=== PATIENT | male | born 1945 | race Caucasian/White ===

== ENCOUNTER → 2017-02-15 | Outpatient (CLI) | payer MEDICARE ==
[~2017-02-15] MED LIST: ALBU90OI; ALLO100; Advair Hfa 230-12 GM; FURO40; GABA100; Humalog100 UNIT/1; INSULANPEN; Klor-Con 1010 MEQ; QUIN10; SIMV40; TAMS.4ER; TRAM50
[2017-02-15 13:54] LABS: Albumin/Globulin Ratio 0.8 (0.8-1.8); Bilirubin, Total 1.3 mg/dL (0.1-1.0); Bun/Creatinine Ratio 10.1 (12.0-20.0); Calcium, Blood 8.9 mg/dL (8.5-10.1); Creatinine, Blood 1.88 mg/dL (0.60-1.20); Globulin, Blood 3.6 g/dL (2.2-4.0); Potassium, Blood 3.9 mmol/L (3.5-5.5); Total Protein, Blood 6.6 g/dL (6.4-8.2)
[2017-02-16 17:51] LABS: Microalb/Creat Ratio UR, Rand Unable to Calculate mg/g (0.000-30.000); Microalbumin, Random Urine >6800.000 mg/L (0.000-20.000)
== END ==
LOC: LAB EV 19:00
PROVIDERS: Nurse Practitioner Family
DX: E11.65 Type 2 diabetes mellitus with hyperglycemia (principal)
CPT/HCPCS: 36415; 80053; 82043; 82570; 83036

== ENCOUNTER 2017-05-17 10:48 | Day surgery (SDC) | payer MEDICARE ==
[~2017-05-17] VITALS: Ht 172.7 cm; Wt 110.7 kg
== END 2017-05-17 12:58 | disposition home or self-care (01) ==
LOC: ORSCSDS 10:48
PROVIDERS: Internal Medicine Gastroenterology
PROC: 0D5F8ZZ Destruction of Right Large Intestine, Via Natural or Artificial Opening Endoscopic (ICD-10-PCS; principal; 2017-05-17 12:00)
PROC: 0DBN8ZX Excision of Sigmoid Colon, Via Natural or Artificial Opening Endoscopic, Diagnostic (ICD-10-PCS; principal; 2017-05-17 12:00)
PROC: 0DBH8ZX Excision of Cecum, Via Natural or Artificial Opening Endoscopic, Diagnostic (ICD-10-PCS; principal; 2017-05-17 12:00)
DX: R10.12 Left upper quadrant pain (principal); D12.0 Benign neoplasm of cecum; D12.5 Benign neoplasm of sigmoid colon; K55.20 Angiodysplasia of colon without hemorrhage; K64.1 Second degree hemorrhoids; K57.30 Diverticulosis of large intestine without perforation or abscess without bleeding; E11.22 Type 2 diabetes mellitus with diabetic chronic kidney disease; I12.9 Hypertensive chronic kidney disease with stage 1 through stage 4 chronic kidney disease, or unspecified chronic kidney disease; N18.9 Chronic kidney disease, unspecified; K70.30 Alcoholic cirrhosis of liver without ascites; J44.9 Chronic obstructive pulmonary disease, unspecified; G47.33 Obstructive sleep apnea (adult) (pediatric); E78.5 Hyperlipidemia, unspecified; Z87.891 Personal history of nicotine dependence; E66.01 Morbid (severe) obesity due to excess calories; Z68.41 Body mass index [BMI] 40.0-44.9, adult; Z79.4 Long term (current) use of insulin; Z79.899 Other long term (current) drug therapy
CPT/HCPCS: 82947; 88305; J7120

== ENCOUNTER → 2019-06-08 | Outpatient (CLI) | payer MEDICARE, OTHER ==
[2019-06-08 13:21] LABS: BASOPHILS ABSOLUTE AUTO 0.06 K/mm3 (0.00-0.23); BASOPHILS PERCENT AUTO 1 % (0-2); EOSINOPHILS ABSOLUTE AUTO 0.14 K/mm3 (0.00-0.68); EOSINOPHILS PERCENT AUTO 2 % (0-6); Hematocrit 37.9 % (37.0-53.0); Hemoglobin 12.3 g/dL (13.5-17.5); IMMATURE GRAN ABSOLUTE AUTO 0.11 K/mm3 (0.00-0.10); IMMATURE GRAN PERCENT AUTO 1 % (0-1); LYMPHOCYTES ABSOLUTE AUTO 0.36 K/mm3 (0.84-5.20); LYMPHOCYTES PERCENT AUTO 4 % (21-46); MONOCYTES ABSOLUTE AUTO 0.78 K/mm3 (0.16-1.47); MONOCYTES PERCENT AUTO 9 % (4-13); Mean Corpuscular HGB 30.6 pg (26.0-34.0); Mean Corpuscular HGB Conc 32.5 g/dL (31.5-36.5); Mean Corpuscular Volume 94 fL (80-100); NEUTROPHILS ABSOLUTE AUTO 7.52 K/mm3 (1.96-9.15); NEUTROPHILS PERCENT AUTO 84 % (41-73); RDW Standard Deviation 52.1 fL (35.1-46.3); Red Blood Cell Count 4.02 M/mm3 (4.30-5.90); White Blood Cell Count 8.97 K/mm3 (4.00-11.30)
[2019-06-08 13:33] LABS: Mean Platelet Volume 11.3 fL (9.1-12.4); Platelet Count 114 K/mm3 (150-400)
[2019-06-08 13:35] LABS: Albumin, Blood 2.2 g/dL (3.4-5.0); Albumin/Globulin Ratio 0.6 (0.8-1.8); Bilirubin, Total 1.1 mg/dL (0.1-1.0); Bun/Creatinine Ratio 16.2 (12.0-20.0); Calcium, Blood 8.3 mg/dL (8.5-10.1); Creatinine, Blood 2.28 mg/dL (0.60-1.20); Globulin, Blood 3.4 g/dL (2.2-4.0); Potassium, Blood 4.5 mmol/L (3.5-5.5); Total Protein, Blood 5.6 g/dL (6.4-8.2)
[2019-06-08 14:23] LABS: International Normalized Ratio 1.11; Prothrombin Time Results 11.8 Sec (9.7-11.5)
== END | disposition home or self-care (01) ==
LOC: LAB SHORT 12:18 → LAB EV 12:18
PROVIDERS: General Practice
DX: T14.8XXA Other injury of unspecified body region, initial encounter (principal); R16.0 Hepatomegaly, not elsewhere classified; K74.60 Unspecified cirrhosis of liver
CPT/HCPCS: 80053; 83690; 85025; 85610; 85730; 87070; 87075; 87205

== ENCOUNTER 2019-07-13 14:18 | Emergency (ER) | payer MEDICARE, OTHER ==
[~2019-07-13] VITALS: Ht 172.7 cm; Wt 113.4 kg
[~2019-07-13 14:18] MED LIST changes: -ALLO100; +ALLO100 PO; +BASAGLAR K100 UNIT/1 SC; +CARV25; -FURO40; +FURO40 PO; -GABA100; +GABA100 PO; +HUMALOG100 UNIT/1 SC; -Humalog100 UNIT/1; -INSULANPEN; -Klor-Con 1010 MEQ; +Klor-Con 1010 MEQ PO; +OSTERA TABLET1 EACH; -SIMV40; -TAMS.4ER; +TAMS.4ER PO; +ZOCOR20 MG PO
[2019-07-13 14:44] LABS: BASOPHILS ABSOLUTE AUTO 0.07 K/mm3 (0.00-0.23); BASOPHILS PERCENT AUTO 1 % (0-2); EOSINOPHILS ABSOLUTE AUTO 0.18 K/mm3 (0.00-0.68); EOSINOPHILS PERCENT AUTO 1 % (0-6); Hematocrit 39.4 % (37.0-53.0); Hemoglobin 12.7 g/dL (13.5-17.5); IMMATURE GRAN ABSOLUTE AUTO 0.09 K/mm3 (0.00-0.10); IMMATURE GRAN PERCENT AUTO 1 % (0-1); LYMPHOCYTES ABSOLUTE AUTO 0.36 K/mm3 (0.84-5.20); LYMPHOCYTES PERCENT AUTO 3 % (21-46); MONOCYTES ABSOLUTE AUTO 1.14 K/mm3 (0.16-1.47); MONOCYTES PERCENT AUTO 9 % (4-13); Mean Corpuscular HGB Conc 32.2 g/dL (31.5-36.5); Mean Corpuscular Volume 96 fL (80-100); NEUTROPHILS ABSOLUTE AUTO 11.44 K/mm3 (1.96-9.15); NEUTROPHILS PERCENT AUTO 86 % (41-73); Platelet Count 167 K/mm3 (150-400); RDW Coefficient Variation 14.6 % (11.7-14.2); RDW Standard Deviation 51.2 fL (35.1-46.3); White Blood Cell Count 13.28 K/mm3 (4.00-11.30)
[2019-07-13 15:04] LABS: Alanine Aminotransfer (ALT/SGP 20 U/L (12-78); Albumin/Globulin Ratio 0.5 (0.8-1.8); Alk Phos 235 U/L (50-136); Anion Gap 6 mmol/L (6-16); Aspartate Aminotrans (AST/SGOT 33 U/L (12-37); Bilirubin, Total 1.4 mg/dL (0.1-1.0); Blood Urea Nitrogen 39 mg/dL (8-24); Bun/Creatinine Ratio 16.8 (12.0-20.0); CO2, Blood 25 mmol/L (21-32); Calcium, Blood 8.2 mg/dL (8.5-10.1); Chloride, Blood 109 mmol/L (98-108); Creatinine, Blood 2.32 mg/dL (0.60-1.20); Globulin, Blood 3.7 g/dL (2.2-4.0); Glomerular Filtration Rate 29 (60-); Glucose, Blood 144 mg/dL (70-99); Sodium, Blood 140 mmol/L (136-145); Total Protein, Blood 5.7 g/dL (6.4-8.2); Troponin I <0.015 ng/mL (0.000-0.040)
[2019-07-13] MEDS ORDERED: AZIT500 PO (17:26)
[2019-07-13] MEDS ORDERED: ONDA4ODT SL (17:34)
== END 2019-07-13 17:56 | disposition home or self-care (01) ==
LOC: ER 14:18
PROVIDERS: Emergency Medicine
DX: R53.1 Weakness (principal); R60.1 Generalized edema; C22.8 Malignant neoplasm of liver, primary, unspecified as to type; Z88.0 Allergy status to penicillin; Z88.8 Allergy status to other drugs, medicaments and biological substances; Z87.891 Personal history of nicotine dependence
CPT/HCPCS: 36415; 71045; 74176; 80053; 83690; 83880; 84443; 84484; 85025; 93005; 93010; 96374; 99285-25; J2405; J7030

== ENCOUNTER 2019-07-13 22:58 | Inpatient (IN) | payer MEDICARE, OTHER ==
[~2019-07-13] VITALS: Ht 172.7 cm; Wt 128.1 kg
[~2019-07-13 22:58] MED LIST changes: +AZIT500 PO; +ONDA4ODT SL
[2019-07-13 23:48] LABS: BASOPHILS ABSOLUTE AUTO 0.05 K/mm3 (0.00-0.23); BASOPHILS PERCENT AUTO 1 % (0-2); EOSINOPHILS ABSOLUTE AUTO 0.09 K/mm3 (0.00-0.68); EOSINOPHILS PERCENT AUTO 1 % (0-6); Hematocrit 42.7 % (37.0-53.0); Hemoglobin 13.6 g/dL (13.5-17.5); IMMATURE GRAN ABSOLUTE AUTO 0.06 K/mm3 (0.00-0.10); IMMATURE GRAN PERCENT AUTO 1 % (0-1); LYMPHOCYTES ABSOLUTE AUTO 0.34 K/mm3 (0.84-5.20); LYMPHOCYTES PERCENT AUTO 4 % (21-46); MONOCYTES ABSOLUTE AUTO 0.56 K/mm3 (0.16-1.47); MONOCYTES PERCENT AUTO 6 % (4-13); Mean Corpuscular HGB 30.8 pg (26.0-34.0); Mean Corpuscular HGB Conc 31.9 g/dL (31.5-36.5); Mean Corpuscular Volume 97 fL (80-100); Mean Platelet Volume 10.1 fL (9.1-12.4); NEUTROPHILS ABSOLUTE AUTO 8.54 K/mm3 (1.96-9.15); NEUTROPHILS PERCENT AUTO 89 % (41-73); Platelet Count 214 K/mm3 (150-400); RDW Coefficient Variation 14.7 % (11.7-14.2); Red Blood Cell Count 4.42 M/mm3 (4.30-5.90); White Blood Cell Count 9.64 K/mm3 (4.00-11.30)
[2019-07-14 00:08] LABS: Alanine Aminotransfer (ALT/SGP 19 U/L (12-78); Albumin, Blood 1.9 g/dL (3.4-5.0); Albumin/Globulin Ratio 0.5 (0.8-1.8); Alk Phos 223 U/L (50-136); Anion Gap 6 mmol/L (6-16); Aspartate Aminotrans (AST/SGOT 32 U/L (12-37); Bilirubin, Total 1.8 mg/dL (0.1-1.0); Blood Urea Nitrogen 41 mg/dL (8-24); Bun/Creatinine Ratio 18.1 (12.0-20.0); CO2, Blood 24 mmol/L (21-32); Calcium, Blood 8.1 mg/dL (8.5-10.1); Chloride, Blood 110 mmol/L (98-108); Creatinine, Blood 2.26 mg/dL (0.60-1.20); Globulin, Blood 3.5 g/dL (2.2-4.0); Glomerular Filtration Rate 30 (60-); Glucose, Blood 165 mg/dL (70-99); Potassium, Blood 4.2 mmol/L (3.5-5.5); Sodium, Blood 140 mmol/L (136-145); Total Protein, Blood 5.4 g/dL (6.4-8.2); Troponin I <0.015 ng/mL (0.000-0.040)
[2019-07-14 03:55] LABS: PCO2 Arterial 33.1 mmHg (35-45); PO2 Arterial 68.6 mmHg (80-100); pH Blood Arterial 7.36 (7.35-7.45)
[2019-07-14 04:47] LABS: Source, Urine Clean Catch
[2019-07-14 04:50] LABS: Appearance, Urine Hazy (Clear); Bilirubin, Urine Neg (Neg); Blood, Urine 4+ (Neg); Color, Urine Amber (P-Yellow); Glucose Qualitative, Urine 1+ (Neg); Ketones, Urine Neg (Neg); Leukocyte Esterase, Urine Neg (Neg); Nitrite, Urine Neg (Neg); Protein, Urine 4+ (Neg); Specific Gravity, Urine 1.015 (1.003-1.022); Urobilinogen, Urine 2+ (Normal)
[2019-07-14 04:55] LABS: White Blood Cells, Urine 0-2 /hpf (0-5)
[2019-07-14 04:56] LABS: Amorphous Mod (0-Heavy); Bacteria Few /hpf; Mucus Light (0-Heavy); Squamous Epithelial Cells Not Seen /hpf (Few)
[2019-07-14 06:20] LABS: Adenovirus Not Detected (NOT DETECT); Bordetella pertussis Not Detected (NOT DETECT); Chlamydophila pneumoniae Not Detected (NOT DETECT); Coronavirus 229E Not Detected (NOT DETECT); Coronavirus HKU1 Not Detected (NOT DETECT); Coronavirus NL63 Not Detected (NOT DETECT); Coronavirus OC43 Not Detected (NOT DETECT); Human Metapneumovirus Not Detected (NOT DETECT); Human Rhinovirus/Enterovirus Not Detected (NOT DETECT); Influenza A/2009-H1 Not Detected (NOT DETECT); Influenza A/H1 Not Detected (NOT DETECT); Influenza A/H3 Not Detected (NOT DETECT); Influenza B Not Detected (NOT DETECT); Mycoplasma pneumoniae Not Detected (NOT DETECT); Parainfluenza Virus 1 Not Detected (NOT DETECT); Parainfluenza Virus 2 Not Detected (NOT DETECT); Parainfluenza Virus 3 Not Detected (NOT DETECT); Parainfluenza Virus 4 Not Detected (NOT DETECT); Respiratory Syncytial Virus Not Detected (NOT DETECT)
[2019-07-14 06:25] LABS: International Normalized Ratio 1.49; Prothrombin Time Results 15.6 Sec (9.7-11.5)
--- NOTE | 2019-07-14 06:28 | NUR ---
PT TO ICU 8 @ 0550 WITH ED RN AND TECH, PT INTUBATED, NOT ON SEDATION PT HAD BEEN UNRESPONSIVE IN ED. VENT SET TO AC 14/500/5/30%. LS COARSE. ETT 8.0 AND 24CM AT THE TEETH. LEVO INF @11, PROPOFOL ON SB. AFTER TRANSFER FROM ED [facility], PT BEGAN MOVING ALL EXTREMETIES, MINIMALLY AROUSABLE. PT BECAME MORE ALERT, REPORTS PAIN TO NECK, FOLLOWING COMMANDS, VERY WEAK. PILLOWS PROVIDED FOR COMFORT. MONITOR SHOWS SINUS RHYTHM, HR 70'S, LEVO GTT INF TO MAINTAIN MAPS>65. DRESSING TO CL RIJ NOT SECURE, REPLACED UPON ARRIVAL. OG IN PLACE, CLAMPED, CURRIE IN PLACE, DARK YELLOW URINE, MINIMAL OUTPUT. LEELA FREESTYLE GLUCOMETER NOTED TO R UPPER ARM. SIGNIFICANT ABD DISTENTION, FIRMNESS TO RUQ, DEPENDENT EDEMA PRIMARILY TO BILAT FLANKS. 1-2+ EDEMA TO BLE, SCATTERED ABRASIONS AND BRUISING TO LEGS, EXTREMETIES COOL TO THE TOUCH. SEE FLOWSHEET FOR TITRATIONS.
[2019-07-14 07:52] LABS: BASOPHILS ABSOLUTE AUTO 0.04 K/mm3 (0.00-0.23); BASOPHILS PERCENT AUTO 0 % (0-2); EOSINOPHILS ABSOLUTE AUTO 0.01 K/mm3 (0.00-0.68); EOSINOPHILS PERCENT AUTO 0 % (0-6); Hematocrit 38.9 % (37.0-53.0); Hemoglobin 12.5 g/dL (13.5-17.5); IMMATURE GRAN ABSOLUTE AUTO 0.12 K/mm3 (0.00-0.10); IMMATURE GRAN PERCENT AUTO 1 % (0-1); LYMPHOCYTES ABSOLUTE AUTO 0.38 K/mm3 (0.84-5.20); LYMPHOCYTES PERCENT AUTO 2 % (21-46); MONOCYTES ABSOLUTE AUTO 1.33 K/mm3 (0.16-1.47); MONOCYTES PERCENT AUTO 7 % (4-13); Mean Corpuscular HGB 30.6 pg (26.0-34.0); Mean Corpuscular HGB Conc 32.1 g/dL (31.5-36.5); Mean Corpuscular Volume 95 fL (80-100); NEUTROPHILS ABSOLUTE AUTO 17.69 K/mm3 (1.96-9.15); NEUTROPHILS PERCENT AUTO 90 % (41-73); Platelet Count 287 K/mm3 (150-400); RDW Coefficient Variation 14.9 % (11.7-14.2); RDW Standard Deviation 52.5 fL (35.1-46.3); Red Blood Cell Count 4.08 M/mm3 (4.30-5.90); White Blood Cell Count 19.57 K/mm3 (4.00-11.30)
[2019-07-14 08:08] LABS: Albumin, Blood 1.6 g/dL (3.4-5.0); Albumin/Globulin Ratio 0.6 (0.8-1.8); Bilirubin, Total 2.2 mg/dL (0.1-1.0); Bun/Creatinine Ratio 18.1 (12.0-20.0); Calcium, Blood 7.5 mg/dL (8.5-10.1); Creatinine, Blood 2.27 mg/dL (0.60-1.20); Globulin, Blood 2.8 g/dL (2.2-4.0); Potassium, Blood 4.1 mmol/L (3.5-5.5); Total Protein, Blood 4.4 g/dL (6.4-8.2)
--- NOTE | 2019-07-14 09:07 | NUR ---
PT ASSESSED THIS AM AT 0715. PT ON PROPOFOL 30MCG FOR MECH VENT, LEVOPHED AT 20MCG. PUPILS PINPOINT 1/1, BUT STRONGLY GRIMACES WITH ANY PALPATION OF ABD, ESPECIALLY OVER RUQ. ABD DISTENDED. PT PALE/DUSKY/COOL/DIAPHORETIC, POOR PERIPHERAL PERFUSION T/O. VASOPRESSIN STARTED, LEVOPHED DECREASED TO 8MCG, PROPOFOL DECREASED TO 20MCG. DR TREVINO IN TO SEE PT, U/S OF MESINTARIC ART ORDERED. DR PRABHAKAR CALLED AND GIVEN UPDATE; IS IN UNIT NOW.
--- NOTE | 2019-07-14 09:49 | NUR ---
US COMPLETE. LEVOPHED DECREASED TO 6MCG, DR PRABHAKAR IN TO SEE PT. DR GILES AND DR GARCIA CONSULTED AND WILL BE IN TODAY TO SEE PT. PT'S DAUGHTER LIZETTE CALLED AND NOTIFIED.
--- NOTE | 2019-07-14 10:46 | NUR ---
DR PRABHAKAR UPDATED PT'S DAUGHTER. PT SCHEDULED FOR PARACENTESIS AT 1200 W RADIOLOGY. LEVOPHED DECREASED TO 5MCG. PROPOFOL REMAINS AT 20MCG, PT APPEARS COMFORTABLE AT REST, GRIMACES WITH TURN.
--- NOTE | 2019-07-14 13:03 | NUR ---
PARACENTESIS COMPLETE, 5.5 LITERS REMOVED, PHARMACY NOTIFIED. PT TO RECEIVE ALBUMIN. BANDAID TO Q.
[2019-07-14 13:32] LABS: Automated BF RBC Count 0.002 M/mm3 (0-0); Automated BF WBC Count 7.355 K/mm3 (0-999); Body Fluid WBC Count 7355 /mm3 (0-999)
[2019-07-14 13:41] LABS: Albumin, Body Fluid 0.6 g/dL; Glucose, Body Fluid 135 mg/dL; Lactate Dehydrogenase, Body Fl 101 U/L; Protein, Body Fluid 1.5 g/dL
[2019-07-14 13:42] LABS: Appearance, Body Fluid Cloudy (Clear); Color, Body Fluid L Yellow (None-Yellow)
[2019-07-14 13:52] LABS: Total Cell Count, Body Fluid 100
--- NOTE | 2019-07-14 18:49 | NUR ---
PT AWAKENS WITH TURNS TOWARDS LATER PART OF SHIFT. PT ABLE TO NOD HEAD APPROPRIATELY TO QUESTIONS. PT GRIMACES W ANY MOVEMENT OF ABD. PROPOFOL TITRATED UP TO 30MCG. VASOPRESSIN TURNED OFF WHEN LEVOPHED AT 5MCG, BUT SINCE THEN LEVOPHED HAS NEEDED TO BE TITRATED BACK UP TO 10MCG. PT MAY NEED VASOPRESSIN RESTARTED. OTHER VITALS REMAIN STABLE. PICTURES TAKEN OF SCABS/SORES ON LEGS. MINIMAL U/O FOR SHIFT; 200CC. DR GARCIA IN TODAY TO SEE PT; NO NEW ORDERS, PT IS NOT A SURGICAL CANDIDATE FOR ANY INTERVENTIONS AT THIS TIME. DR HERNANDEZ ALSO IN, WILL SEE PT LATER TODAY
--- NOTE | 2019-07-14 23:13 | NUR ---
ASSUMPTION OF CARE ASSUMED CARE OF PT @ 1900, PT INTUBATED AND SEDATED WITH PROPOFOL, VENT SET TO AC 14/450/5/30%, PT AROUSES TO VERBAL STIMULI, ANSWERS SOME YES/NO QUESTIONS, GRIMACES WITH TURNS. MONITOR SHOWS SINUS RHYTHM, HR 70'S, LEVO AND VASOPRESSIN INF TO MAINTAIN MAPS>65. SKIN IS PALE AND COOL, VERY FRAGILE. OG IN PLACE TO LIS, BROWN/GREEN OUTPUT. ABD MODERATELY DISTENDED, BUT IMPROVED FROM ADMISSION, VERY TENDER WITH PALPATION. CURRIE IN PLACE DRAINING DARK YELLOW/ELLA URINE, WITH LARGE AMOUNT OF SEDIMENT. SEE FLOWSHEET FOR TITRATIONS. DR HERNANDEZ IN TO SEE PT @ 1999, NEW ORDERS FOR ADDITIONAL ALBUMIN.
--- NOTE | 2019-07-15 01:13 | NUR ---
PT REMAINS INTUBATED AND SEDATED, VASOPRESSIN ON SB, PROPOFOL INCREASED FOR COMFORT. PT CONTINUES TO GRIMACE WITH NURSING CARE, RELAXES WITH REST.
[2019-07-15 04:06] LABS: BASOPHILS ABSOLUTE AUTO 0.01 K/mm3 (0.00-0.23); BASOPHILS PERCENT AUTO 0 % (0-2); EOSINOPHILS ABSOLUTE AUTO 0.03 K/mm3 (0.00-0.68); EOSINOPHILS PERCENT AUTO 0 % (0-6); Hematocrit 26.4 % (37.0-53.0); Hemoglobin 8.5 g/dL (13.5-17.5); IMMATURE GRAN ABSOLUTE AUTO 0.03 K/mm3 (0.00-0.10); IMMATURE GRAN PERCENT AUTO 0 % (0-1); LYMPHOCYTES PERCENT AUTO 5 % (21-46); MONOCYTES ABSOLUTE AUTO 0.61 K/mm3 (0.16-1.47); MONOCYTES PERCENT AUTO 8 % (4-13); Mean Corpuscular HGB Conc 32.2 g/dL (31.5-36.5); Mean Corpuscular Volume 96 fL (80-100); Mean Platelet Volume 10.7 fL (9.1-12.4); NEUTROPHILS ABSOLUTE AUTO 6.28 K/mm3 (1.96-9.15); NEUTROPHILS PERCENT AUTO 85 % (41-73); Platelet Count 94 K/mm3 (150-400); RDW Coefficient Variation 15.2 % (11.7-14.2); RDW Standard Deviation 52.8 fL (35.1-46.3); Red Blood Cell Count 2.74 M/mm3 (4.30-5.90); White Blood Cell Count 7.36 K/mm3 (4.00-11.30)
[2019-07-15 04:22] LABS: Albumin, Blood 3.2 g/dL (3.4-5.0); Albumin/Globulin Ratio 1.8 (0.8-1.8); Bilirubin, Total 1.9 mg/dL (0.1-1.0); Bun/Creatinine Ratio 18.4 (12.0-20.0); Calcium, Blood 7.8 mg/dL (8.5-10.1); Creatinine, Blood 2.45 mg/dL (0.60-1.20); Globulin, Blood 1.8 g/dL (2.2-4.0); Potassium, Blood 3.8 mmol/L (3.5-5.5)
[2019-07-15 05:30] LABS: PCO2 Arterial 31.7 mmHg (35-45); PO2 Arterial 90.8 mmHg (80-100)
--- NOTE | 2019-07-15 07:33 | NUR ---
SHIFT SUMMARY PT REMAINS INTUBATED WITH MILD SEDATION, PRESSORS DECREASED THIS SHIFT, LEVO INFUSING @ 4 TO MAINTAIN MAPS>65. SEDATION VACATION THIS SHIFT WITH SBT, PT AWAKE WITH PROPOFOL @ 10, TOLERATING VENT ON PS. PT REPORTS PAIN TO ABD, ESPECIALLY WITH MOVEMENT/REPOSITIONING, ASKED PT IF HE WOULD LIKE SEDATION INCREASED UNTIL PROVIDER VISIT TODAY, PT DECLINES INCREASING SEDATION. OG REMAINS IN PLACE TO LIS, CURRIE IN PLACE WITH DARK YELLOW OUTPUT WITH SEDIMENT. REPORT GIVEN TO ABDIRIZAK BARRAGAN.
--- NOTE | 2019-07-15 08:44 | NUR ---
ASSUMED CARE OF PT AT 0700. REPORT FROM CATA BARRAGAN. PT INTUBATED, VENT SETTINGS SPONT PS 7/PEEP 5/30%. LUNGS COARSE AND DIMINISHED IN BASES. COUGH AND GAG REFLEX PRESENT. PROPOFOL INFUSING AT 10 MCG/KG/MIN. PT FOLLOWING COMMANDS. ATTEMPTING TO COMMUNICATE BY MOUTHING WORDS AND DRAWING IN AIR, OFFERED PEN AND PAPER, PT REFUSED, PROVIDED COMMUNICATION BOARD. PT REFUSING ADDITIONAL SEDATION. NODS WHEN ASKED ABOUT PAIN. ABD DISTENDED, FIRM, TYPMANIC. TENDER c PALPATION. OGT TO LIS. CLEAR/BROWN EMESIS IN TUBE. WEAK IN ALL EXTREMITIES. SCATTERED BRUISING AND SORES ON LEGS BILATERALLY. TEMP PROBE CURRIE PATENT AND DRAINING YELLOW URINE c SEDIMENT TO GRAVITY. LEVOPHED INFUSING AT 4 MCG/MIN. WILL TITRATE FOR MAP >65. WILL CONTINUE TO MONITOR.
--- NOTE | 2019-07-15 11:47 | NUR ---
DR PRABHAKAR TO ROOM TO ASSESS PT. PROPOFOL PLACED ON STANDBY. PT FOLLOWING COMMANDS. STRONG COUGH. MODERATE, RED STREAKED SPUTUM THROUGH ETT. PLAN FOR EXTUBATION. RT NOTIFIED. EXTUBATED AT 1106. PLACED ON 2L O2 VIA NC. PT ABLE TO COUGH AND CLEAR SECRETIONS. PT VERY VOCAL, ENCOURAGED PT TO REST VOICE. RESTRAINTS REMOVED.
[2019-07-15] MEDS ORDERED: INCRUSE ELLI62.5 MC1 INH (14:54)
[2019-07-15] MEDS ORDERED: CARVEDILOL6.25 MG PO (14:55)
[2019-07-15] MEDS ORDERED: Calcitriol0.25 MCG PO (14:56)
--- NOTE | 2019-07-15 17:47 | NUR ---
SHIFT SUMMARY PT EXTUBATED THIS SHIFT. ON 2L O2 VIA NC. LUNGS DIMINISHED IN BASES. PT c THICK WHITE SECRETIONS, ABLE TO MANAGE c ORAL SUCTIONING. VOICE HOARSE. SPEAKING IN FULL SENTANCES. STATES HE FEELS SOB. NO DISTRESS NOTED AT THIS TIME. O2 SATS >95%. PT REFUSING SWALLOW EVAL AT THIS TIME. ABD FIRM, DISTENDED, TENDER c PALPATION. LEVOPHED CONTINUES AT 4 MCG/MIN, ATTEMPTED TO DECREASE THIS SHIFT, MAPS WERE LESS THAN 65. HR 90-100'S. PT PAINFUL c TURNS, ENCOURAGED, REFUSED BED BATH. CURRIE PATENT AND DRAINING TO GRAVITY. WILL CONTINUE TO MONITOR UNTIL REPORT TO ONCOMING NURSE.
--- NOTE | 2019-07-15 19:20 | NUR ---
ASSESSMENT/ASSUMED CARE PT SITTING UP IN BED AWAKE AND ALERT. DOING SELF SUCTIONING OF MOUTH. C/O PAIN TO RIGHT UPPER QUAD ABD, WILL CALL MD. LUNGS COARSE AND DECREASED IN THE BASES ON 3 LITERS O2 VIA NC. PRODUCTIVE COUGH WITH THICK WHITE SPUTUM. PT DOING SELF SUCTIONING. HEART RATE REGULAR, BP STABLE ON 3 MCQ/MIN LEVOPHED. TITRATING TO KEEP SBP ABOVE 90. EDEMA NOTED TO BILAT LOWER EXT AND GENERAL. PT REPOSITIONED TO RIGHT WITH HOB UP 30. BT+ TYMPANIC. PT NPO. CENTRAL LINE TO RIGHT IJ, DRSG CHANGED AND CATH STABILIZATION DEVICE APPLIED. SITE CLEAR. LEVOPHED AT 3 MCQ/MIN, LR AT 50 ML/HR AND NS AT 10 ML/HR. CURRIE CATH PATENT DRAINING CLEAR YELLOW URINE. PT WITH GENERAL WEAKNESS. ORAL CARE DONE.
--- NOTE | 2019-07-15 20:05 | NUR ---
PAIN CALL TO DR PRABHAKAR REGARDING PAIN TO RIGHT UPPER QUAD, RECEIVED ORDER FOR FENTANYL
--- NOTE | 2019-07-16 02:14 | NUR ---
PAIN PT SLEEPING, AWAKENS EASILY. REPOSITIONED TO RIGHT WITH HOB UP. PT STARTED YELLING,"IT HURTS". TRIED TO REPOSITION PT AGAIN. PT STATES,"NO DON'T MOVE ME. I NEED PAIN MEDS". PT MED WITH FENTANYL 25 MCQ. PT CONT TO MOAN. PT STATES,"MY BREATHING" ENCOURAGED PT TO TRY AND RELAX. SPO2 97% ON 3 LITERS. RESP EVEN AND NONLABORED
[2019-07-16 04:02] LABS: BASOPHILS ABSOLUTE AUTO 0.03 K/mm3 (0.00-0.23); BASOPHILS PERCENT AUTO 0 % (0-2); EOSINOPHILS ABSOLUTE AUTO 0.12 K/mm3 (0.00-0.68); EOSINOPHILS PERCENT AUTO 1 % (0-6); Hematocrit 33.4 % (37.0-53.0); Hemoglobin 10.4 g/dL (13.5-17.5); IMMATURE GRAN ABSOLUTE AUTO 0.14 K/mm3 (0.00-0.10); IMMATURE GRAN PERCENT AUTO 1 % (0-1); LYMPHOCYTES ABSOLUTE AUTO 0.27 K/mm3 (0.84-5.20); LYMPHOCYTES PERCENT AUTO 2 % (21-46); MONOCYTES PERCENT AUTO 9 % (4-13); Mean Corpuscular HGB Conc 31.1 g/dL (31.5-36.5); Mean Corpuscular Volume 96 fL (80-100); Mean Platelet Volume 10.4 fL (9.1-12.4); NEUTROPHILS ABSOLUTE AUTO 10.14 K/mm3 (1.96-9.15); NEUTROPHILS PERCENT AUTO 86 % (41-73); Platelet Count 129 K/mm3 (150-400); RDW Coefficient Variation 15.2 % (11.7-14.2); RDW Standard Deviation 53.7 fL (35.1-46.3); Red Blood Cell Count 3.47 M/mm3 (4.30-5.90)
[2019-07-16 04:16] LABS: International Normalized Ratio 1.6; Prothrombin Time Results 16.7 Sec (9.7-11.5)
[2019-07-16 04:22] LABS: Albumin, Blood 2.3 g/dL (3.4-5.0); Albumin/Globulin Ratio 1.1 (0.8-1.8); Bilirubin, Total 1.9 mg/dL (0.1-1.0); Bun/Creatinine Ratio 17.4 (12.0-20.0); Calcium, Blood 7.7 mg/dL (8.5-10.1); Creatinine, Blood 2.82 mg/dL (0.60-1.20); Globulin, Blood 2.1 g/dL (2.2-4.0); Total Protein, Blood 4.4 g/dL (6.4-8.2)
--- NOTE | 2019-07-16 06:01 | NUR ---
SHIFT SUMMARY PT RESTING QUIETLY. MED WITH FENTANYL 25 MCQ ONCE DURING THE NIGHT FOR C/O RIGHT UPPER QUAD ABD PAIN. TURN Q2HR. LEVOPHED INCREASED FROM 3 MCQ/MIN TO 10 MCQ/MIN TO KEEP SBP >90. CENTRAL LINE DRSG CHANGED. POOR URINE OUTPUT-290ML DARK YELLOW URINE WITH SEDIMENT. PT CONT NPO. PRODUCTIVE COUGH AND DOING SELF SUCTIONING. O2 AT 3 LITERS VIA NC. REPORT TO ON COMING NURSE
--- NOTE | 2019-07-16 07:28 | NUR ---
CARE ASSUMED CARE AND REPORT ASSUMED FROM NICCI BARRAGAN. PT SLEEPING BUT EASILY AROUSABLE. C/O PAIN TO ABDOMEN. ENCOURAGED PT TO ADJUST HIMSELF TO GAIN STRENGTH AND DISCUSSED THE IMPORTANCE OF TURNING; PT REFUSED TO TURN AT THIS TIME. AFEBRILE. NSR, HR 80S. LEVOPHED GTT INFUSING AT 9 MCG. LR INFUSING AT 50 ML/HR PER ORDER. LUNG SOUNDS CLEAR, TOLERATING 3L NC. CURRIE CATH SECURED AND PATENT. PT NPO CURRENTLY; WILL INQUIRE FOR SPEECH EVAL. CENTRAL LINE SECURED. WILL CONTINUE TO MONITOR.
--- NOTE | 2019-07-16 11:23 | NUR ---
REASSESSMENT PT CONTINUES TO SLEEP OFF/ON AND IS RESISTANT TO MOVING. CONTINUES TO COMPLAIN OF ABDOMINAL PAIN. TYLENOL SUPPOSITORY GIVEN FOR PAIN; WILL MONITOR. ABDOMEN LARGELY SWOLLEN; MD AWARE. DARELL CONSULTED THIS AM; AWAITING EVALUATION. LR MIV DISCONTINUED PER MD. LEVO INFUSING AT 9 MCG; ATTEMPTING TO TITRATE DOWN. ALBUMIN INFUSING PER ORDER. AWAITING SPEECH EVAL, OT AND PT. LUNG SOUNDS CLEAR AND TOLERATING 2L NC. HR AND RHYTHM VARIES FROM NSR, HR 80S TO [place], HR 110-120. PT TURNED Q2H. WILL CONTINUE TO MONITOR.
--- NOTE | 2019-07-16 15:42 | NUR ---
Pt resting in bed upon arrival. Pt is A&O and denies pain at this time. Pt appears dyspneic as evidenced by work of breathing, respiratory rate of 24, and ability to only speak 1 word sentences. Received verbal permission from Pt to contact daughter Shabnam to provide update and plan of care. This RN ended visit to allow Pt to rest. Spoke with Bedside RN Jonna and discussed case. Called and spoke Pt's daughter Shabnam. Updated Haque of Pt's condition and plan of care. Engaged in therapeutic conversation regarding advanced care planning. Educated on the importance of planning for Pt's future as his cirrhosis and liver cancer take its coarse. Discussed the probability of Pt needing assistance with his ADLs. Discussed the possibility of needing to consider hospice in the future. Offered therapeutic listening and answered questions. Haque is inquiring about short term and penitentiary prognosis. This RN deferred questions to hospitalist. Haque reports Pt's brother has offered Pt to move in with him in [facility]. Brother has an extra room and would not charge Pt rent. Haque reports Pt has turned this offer down. Shabnam is requesting if Pt improves that staff discusses intermediate accountant needs and to present this offer again. Jarret is also requesting updates from MD. Shabnam expresses appreciation of visit and reports no other concerns at this time. Spoke with Dr Quintero, discussed case, and relayed Shabnam's request for update and prognosis. Palliative Care will remain available.
--- NOTE | 2019-07-16 16:34 | NUR ---
REASSESSMENT PT EVALUATED BY SPEECH THERAPY, OT, AND PT. PT CLEARED TO HAVE PUREED DIET. REMAINS ON LEVOPHED GTT 6 MCG. MIDODRINE TO BE STARTED. PT RECEIVED COMPLETE BEDBATH AND LINEN CHANGE. AWIATING EVAL BY MD OLZOYA. WILL CONTINUE TO MONITOR.
--- NOTE | 2019-07-16 17:38 | NUR ---
SHIFT SUMMARY PT HAS REMAINED ON LEVOPHED ENTIRE SHIFT; CURRENTLY INFUSING AT 5 MCG. LR DISCONTINUED. PT RECEIVED LARGE AMOUNT OF ALBUMIN; SEE EMAR. DARELL CONSULTED; SPOKE WITH OFFICE STAFF THIS AM. URINE OUTPUT 110 ML DURING SHIFT. PALLIATIVE CARE TALKED WITH PT. WORKED WITH OT AND PT DURING SHIFT. PT COMPLETED SWALLOW EVAL AND WAS ABLE TO START MIDODRINE THIS AFTERNOON; FIRST DOSE ADMINSTERED. FENTANYL 25 MCG IVP GIVEN 3X DURING SHIFT ALONG WITH TYELENOL SUPPOSITORY. COMPLETE BEDBATH AND LINEN CHANGE DONE. HOB ELEVATED AND PT TURNED Q2H. HR VARIED FROM 80S WHEN SLEEPING UP TO 130S WHEN AWAKE AND IN PAIN. WILL GIVE BEDSIDE, HANDOFF REPORT TO NOC RN.
--- NOTE | 2019-07-16 20:02 | NUR ---
CALLED DR LOZOYA WITH URINE SODIUM RESULTS. DR LOZOYA STATED HE ALREADY RECEIVED THE RESULTS. NO NEW ORDERS RECEIVED.
--- NOTE | 2019-07-16 20:12 | NUR ---
ASSUMPTION OF CARE: PT A&O, FOLLOWS DIRECTIONS, ANSWERS QUESTIONS APPROPRIATELY. HOWEVER IS SLOW TO RESPOND-POSSIBLY D/T SOB/PAIN. C/O OF CONSTANT PAIN. IN ST W/ PACS, HR IN THE 120-130S. SBP IN THE 110-120S. LEVOPHED IS ON-GOAL TO TITRATE TO KEEP SBP >90. LUNG SOUNDS COARSE IN UPPER LOBES AND DIM IN LOWER. PT C/O SOB. SPO2 >90% ON 4L NC. ABDOMEN IS SEVERELY DISTENDED, FIRM, AND VERY TENDER. ON A PUREE DIET, TOLERATES WELL. CL IN RIJ INFUSING WITH NS TKO AND LEVOPHED AT 5 MCG. PT HAS MULTIPLE SCABS AND ABRASION ON BLE. SKIN TEARS ON BILAT ELBOWS THAT ARE COVERED WITH MEPILEX. CURRIE IS IN PLACE DRAINING TO GRAVITY WITH MINIMAL URINE OUTPUT. PT USES CALL LIGHT APPROPRIATELY. BED IS IN LOWEST POSITION. WILL CONTINUE TO MONITOR.
[2019-07-17 03:32] LABS: Base Excess Venous -10.3 mmol/L; Bicarbonate Venous 16.5 mmol/L (24.0-30.0); PCO2 Venous 43.3 mmHg (38-42); PO2 Venous 66.7 mmHg (38-42); pH Blood Venous 7.22 (7.34-7.37)
[2019-07-17 03:32] LABS: BASOPHILS ABSOLUTE AUTO 0.04 K/mm3 (0.00-0.23); BASOPHILS PERCENT AUTO 0 % (0-2); Hematocrit 37.2 % (37.0-53.0); Hemoglobin 11.7 g/dL (13.5-17.5); LYMPHOCYTES PERCENT AUTO 2 % (21-46); MONOCYTES ABSOLUTE AUTO 1.45 K/mm3 (0.16-1.47); MONOCYTES PERCENT AUTO 9 % (4-13); Mean Corpuscular HGB 30.6 pg (26.0-34.0); Mean Corpuscular HGB Conc 31.5 g/dL (31.5-36.5); Mean Corpuscular Volume 97 fL (80-100); Mean Platelet Volume 10.2 fL (9.1-12.4); Platelet Count 152 K/mm3 (150-400); RDW Coefficient Variation 15.5 % (11.7-14.2); RDW Standard Deviation 55.8 fL (35.1-46.3); Red Blood Cell Count 3.82 M/mm3 (4.30-5.90); White Blood Cell Count 16.63 K/mm3 (4.00-11.30)
[2019-07-17 03:33] LABS: EOSINOPHILS ABSOLUTE AUTO 0.04 K/mm3 (0.00-0.68); EOSINOPHILS PERCENT AUTO 0 % (0-6); IMMATURE GRAN ABSOLUTE AUTO 0.21 K/mm3 (0.00-0.10); IMMATURE GRAN PERCENT AUTO 1 % (0-1); NEUTROPHILS ABSOLUTE AUTO 14.59 K/mm3 (1.96-9.15); NEUTROPHILS PERCENT AUTO 88 % (41-73)
--- NOTE | 2019-07-17 03:43 | NUR ---
SPOKE WITH DR NICOLE. NO NEW ORDERS RECEIVED
--- NOTE | 2019-07-17 03:45 | NUR ---
SPOKE WITH DR GODOY RE PT PH LEVEL OF 7.22. ORDERS ARE TO PUT PT ON BIPAP AND CALL DR LOZOYA WITH [facility]. TALKED WITH DR LOZOYA AND ORDERS RECEIVED TO D/C NS AND START D5W WITH 3 AMPS BICARB AT 100MLS/HR.
[2019-07-17 03:48] LABS: Anion Gap 7 mmol/L (6-16); Blood Urea Nitrogen 55 mg/dL (8-24); Bun/Creatinine Ratio 16.2 (12.0-20.0); CO2, Blood 21 mmol/L (21-32); Calcium, Blood 8.1 mg/dL (8.5-10.1); Chloride, Blood 111 mmol/L (98-108); Creatinine, Blood 3.39 mg/dL (0.60-1.20); Glomerular Filtration Rate 19 (60-); Glucose, Blood 137 mg/dL (70-99); Phosphorus, Blood 4.5 mg/dL (2.5-4.9); Potassium, Blood 4.3 mmol/L (3.5-5.5); Sodium, Blood 139 mmol/L (136-145)
--- NOTE | 2019-07-17 04:19 | NUR ---
RT AT BEDSIDE. PT PLACED ON BIPAP 14/8/FIO2 30%. PT TOLERATING WELL
--- NOTE | 2019-07-17 04:37 | NUR ---
DR GODOY CALLED TO ASK WHAT DR LOZOYA RECOMMENDED. UPDATED DR GODOY ON DARELL'S ORDERS. DR GODOY ASKED HOW URINE OUTPUT HAS BEEN THIS SHIFT. I STATED PT'S URINE OUTPUT HAS BEEN VERY MINIMAL- 30MLS OUT THUS FAR AND PT HAD 110MLS OUT DURING DAYSHIFT. ALSO STATED PT'S LUNG SOUNDS HAVE BECOME MORE COARSE AND WHEEZY AND PT HAS DEVELOPED A WET COUGH. NO NEW ORDERS RECEIVED.
--- NOTE | 2019-07-17 05:48 | NUR ---
SHIFT SUMMARY: NEURO REMAINS UNCHANGED. ATTEMPTED TO TITRATE LEVOPHED DOWN TO 4 MCG. SBP DROPPED BELOW 90 AND MAP DROPPED BELOW 60. TITRATED UP TO 5MCG WITH LITTLE IMPROVEMENT. CURRENTLY RUNNING AT 6MCG. LUNG SOUNDS MORE COARSE AND WHEEZY. PT DEVELOPED A WET COUGH OVER NIGHT. CURRENTLY ON BIPAP 14/6/30%. PT TOLERATING WELL. RIJ REMAINS IN PLACE INFUSING WITH LEVOPHED AND D5W WITH BICARB AT 100MLS/HR. CURRIE REMAINS IN PLACE WITH MINIMAL URINE OUTPUT T/O SHIFT-ABOUT 30MLS OF DARK YELLOW URINE. WILL PASS REPORT TO ONCOMING SHIFT
[2019-07-17 05:53] LABS: PCO2 Arterial 31.1 mmHg (35-45); PO2 Arterial 85.6 mmHg (80-100); pH Blood Arterial 7.33 (7.35-7.45)
--- NOTE | 2019-07-17 06:28 | NUR ---
DR LOZOYA AT BEDSIDE. ORDERS RECEIVED FOR ALBUMIN 25GM IV QD AND BUMEX 2MG IV QD. DR LOZOYA ALSO ASKED FOR ME TO RELAY MESSAGE TO DAUGHTER FOR HER TO CALL HIM REGARDING PLAN
--- NOTE | 2019-07-17 08:28 | NUR ---
PT ASSESSED AT 0715. PT SLEEPING ON BIPAP, PT MOANING/GRUNTING WITH EACH INSP. PT PLACED ON 2L N/C FOR ORAL CARE AND ASSESSMENT. PT ORIENTED ONLY TO FIRST NAME, ANSWERS YES OR GARCIA TO ALL OTHER QUESTIONS. PT ABLE TO TAKE SM SIP OF WATER, BUT HAS DIFFICULTY FOLLOWING ANY INSTRUCTIONS. PT UNABLE TO SWALLOW MIDODRINE. MIDODRINE HELD. WILL KEEP PT NPO. PT HAS WEAK GAG AND VERY WEAK MOIST COUGH. PT MOANS LOUDLY AND GRIMACES W LIGHT ABD PALP. ABSENT BOWEL TONES, ABD VERY TYMPANIC AND DISTENDED. EDEMA IMPROVED TO BLE FROM THE 7TH. SCANT <10CC URINE TO CURRIE CATH. LEVOPHED INCREASED FROM 6 TO 7MCG FOR MAP <55. ALBUMIN AND BUMEX STARTED. BIPAP REPLACED. DR OVIEDO AT BEDSIDE AND IS SPEAKING WITH DAUGHTER NOW.
--- NOTE | 2019-07-17 09:41 | NUR ---
DR GODOY SPOKE WITH PT'S DAUGHTER. PT WOULD LIKE TO MAKE HER FATHER COMFORT CARE STATUS, I VARIFIED THIS OVER THE PHONE. LEVOPHED TO BE DC'D, I WILL MEDICATE FOR PAIN SHORTLY.
--- NOTE | 2019-07-17 10:29 | NUR ---
MS 4MG IVP GIVEN FOR PAIN. PT CONT TO MOAN CONSTANTLY AFTER MS. RESP 32 AND LABORED. ATIVAN 1MG IVP GIVEN PRIOR TO BED BATH. COPIOUS AMTS OF VISCOUS SPUTUM SUCTIONED FROM MOUTH AND BACK OF THROAT. LEVOPHED DC'D PER COMFORT CARE ORDERS. PT ATTEMPTS TO PULL OFF BIPAP MASK, THAT WILL BE DC'D WELL FOR PT COMFORT.
--- NOTE | 2019-07-17 10:50 | NUR ---
BEDBATH GIVEN, PT MOANED AND CRIED OUT WITH TURNS. AFTER BEDBATH COMPLETE PT APPEARED MUCH MORE COMFORTABLE, SLEEPING WITHOUT MOANING. WHEN ASKED HOW HE WAS FEELING PT PUT HAND UP IN AIR AND GAVE A SO/SO SIGN. ALL IV FLUIDS DISCONTINUED INCLUDING LEVOPHED. BIPAP REMOVED. DR OVIEDO GIVEN UPDATE. WILL CALL DAUGHTER AND UPDATE HER.
--- NOTE | 2019-07-17 11:30 | NUR ---
PT'S DAUGHTER BAUER UPDATED OVER PHONE, PT TRANSFERED UP TO 308 VIA BED.
== END 2019-07-17 12:48 | DRG 871 ==
LOC: ER 22:58 → ICUW 07-14 05:40 → ICUE 07-14 05:40 → MEDS 07-17 11:16
PROVIDERS: Emergency Medicine; Internal Medicine; Internal Medicine Critical Care Medicine; Internal Medicine Gastroenterology; Internal Medicine Nephrology; Internal Medicine Pulmonary Disease; ADMIT Family Medicine
PROC: 0BH18EZ Insertion of Endotracheal Airway into Trachea, Via Natural or Artificial Opening Endoscopic (ICD-10-PCS; principal; 2019-07-13)
PROC: 5A1945Z Respiratory Ventilation, 24-96 Consecutive Hours (ICD-10-PCS; 2019-07-13)
PROC: 02HV33Z Insertion of Infusion Device into Superior Vena Cava, Percutaneous Approach (ICD-10-PCS; 2019-07-13)
PROC: 3E043XZ Introduction of Vasopressor into Central Vein, Percutaneous Approach (ICD-10-PCS; 2019-07-13)
PROC: 0W9G30Z Drainage of Peritoneal Cavity with Drainage Device, Percutaneous Approach (ICD-10-PCS; 2019-07-14)
DX: A41.9 Sepsis, unspecified organism (principal); R65.21 Severe sepsis with septic shock; J96.01 Acute respiratory failure with hypoxia; K65.2 Spontaneous bacterial peritonitis; N17.9 Acute kidney failure, unspecified; N25.81 Secondary hyperparathyroidism of renal origin; C22.0 Liver cell carcinoma; K76.6 Portal hypertension; Z51.5 Encounter for palliative care; Z90.5 Acquired absence of kidney; E66.01 Morbid (severe) obesity due to excess calories; Z68.38 Body mass index [BMI] 38.0-38.9, adult; Z79.4 Long term (current) use of insulin; G47.33 Obstructive sleep apnea (adult) (pediatric); M17.10 Unilateral primary osteoarthritis, unspecified knee; N18.3 Chronic kidney disease, stage 3 (moderate); J44.9 Chronic obstructive pulmonary disease, unspecified; Z87.891 Personal history of nicotine dependence; E11.22 Type 2 diabetes mellitus with diabetic chronic kidney disease; E88.09 Other disorders of plasma-protein metabolism, not elsewhere classified; K72.90 Hepatic failure, unspecified without coma; R60.1 Generalized edema; Z20.828 Contact with and (suspected) exposure to other viral communicable diseases
CPT/HCPCS: 0099U; 31500; 31720; 36415; 36600; 49083; 51702; 70450; 71045; 76770; 80053; 80069; 81001; 82042; 82140; 82803; 82945; 82947; 83605; 83615; 83690; 83735; 83880; 84145; 84157; 84300; 84484; 85025; 85610; 86140; 87040; 87070; 87075; 87205; 89051; 92610; 93306; 93975; 94002; 94003; 94640; 94660; 94667; 94668; 96365; 96366; 96367; 96374; 96375; 97163; 97166; 99285-25; C9113; J0456; J0692; J1170; J1650; J2060; J2270; J2370; J2405; J2704; J3010; J3370; J7030; J7050; J7060; J7070; J7120; P9041; P9045; P9046; U0003